=== PATIENT | female | born 1950 | race Caucasian/White ===

== ENCOUNTER → 2016-12-18 | Outpatient (CLI) | payer BC ==
[~2016-12-18] MED LIST: ACET-1256 PO; ASPI81TA28 PO; CLB/200 PO; CLR10 PO; HYDR-3419 PO; IMDSR30 PO; LISI-725 PO; LORA24TA7 PO; PRED-301 PO; SCOP1.5D TD; SERT50TA PO; SIMV10TA2 PO
[2016-12-18 13:51] LABS: ALT/SGPT 21 U/L (12-78); BLOOD UREA NITROGEN 25 mg/dl (7-18); BUN/CREATININE RATIO 33.9 (10-20); CALCIUM 9.9 mg/dl (8.5-10.1); CARBON DIOXIDE 27 mmol/L (21-32); CHLORIDE 106 mmol/L (98-107); CHOLESTEROL 173 mg/dl (0-200); CREATININE 0.75 mg/dl (0.60-1.20); GLUCOSE 95 mg/dl (70-99); SODIUM 140 mmol/L (136-145); TRIGLYCERIDES 211 mg/dl (0-150); VERY LOW DENSITY LIPOPROT CALC 42 mg/dl
[2016-12-18 13:56] LABS: ALB/GLOB RATIO 1.1 (0.9-2); ALKALINE PHOSPHATASE 78 U/L (45-117); AST/SGOT 15 U/L (15-37); CHOLESTEROL/HDL RATIO 2.9; HDL CHOLESTEROL 59 mg/dl; LDL CHOLESTEROL CALCULATED 72 mg/dl
[2016-12-18 14:04] LABS: ESTIMATED AVERAGE GLUCOSE 126 mg/dl; HA1C FLAG Normal (Normal)
== END | disposition home or self-care (01) ==
LOC: C.LABBC 09:25
PROVIDERS: ATTEND Family Medicine
DX: E11.9 Type 2 diabetes mellitus without complications (principal); E78.00 Pure hypercholesterolemia, unspecified

== ENCOUNTER → 2017-01-02 | Outpatient (CLI) | payer BC ==
--- NOTE | 2017-01-02 08:37 | DIAGNOSTIC IMAGING REPORT ---
DOUBLE CONTRAST BARIUM ESOPHAGRAM CLINICAL HISTORY: Dysphagia. COMPARISON STUDY: No priors. TECHNIQUE: A standard air contrast barium esophagram is performed. Multiple spot images of the esophagus are acquired both upright and prone. FINDINGS: The patient swallowed barium and the barium pill without difficulty. The mucosal pattern is normal. There is no evidence of intrinsic or extrinsic mass lesion. No aspiration was seen. The gastroesophageal junction distended normally. Gastroesophageal reflux was observed during the examination. Fluoroscopy time: 1.0 minutes. Fluoroscopic images: 23 IMPRESSION: Gastroesophageal reflux was observed. Electronically signed by: Chepe Mcgarry M.D. 01/02/2017 8:35 AM Dictated Date/Time: 01/02/2017 8:34 AM
== END | disposition home or self-care (01) ==
LOC: C.RAD 07:58
PROVIDERS: ATTEND Family Medicine
DX: R13.10 Dysphagia, unspecified (principal); K21.9 Gastro-esophageal reflux disease without esophagitis

== ENCOUNTER → 2017-04-12 | Outpatient (CLI) | payer BC ==
[2017-04-12 10:54] LABS: HEMATOCRIT 39.6 % (37-47); MEAN CELL VOLUME 95.9 fL (80-100); MEAN CORPUSCULAR HEMOGLOBIN 32.9 pg (25-34); MEAN CORPUSCULAR HGB CONC 34.3 g/dl (32-36); MEAN PLATELET VOLUME 9.8 fL (7.4-10.4); PLATELET COUNT 248 K/uL (130-400); RED BLOOD COUNT 4.13 M/uL (4.2-5.4); WHITE BLOOD COUNT 7.15 K/uL (4.8-10.8)
[2017-04-12 11:08] LABS: ESTIMATED AVERAGE GLUCOSE 120 mg/dl; HA1C FLAG Normal (Normal)
[2017-04-12 11:23] LABS: ALT/SGPT 28 U/L (12-78); AST/SGOT 12 U/L (15-37); BLOOD UREA NITROGEN 25 mg/dl (7-18); BUN/CREATININE RATIO 32.5 (10-20); CALCIUM 10.1 mg/dl (8.5-10.1); CARBON DIOXIDE 27 mmol/L (21-32); CHLORIDE 110 mmol/L (98-107); CHOLESTEROL 160 mg/dl (0-200); CREATININE 0.77 mg/dl (0.60-1.20); GLUCOSE 107 mg/dl (70-99); POTASSIUM 4.2 mmol/L (3.5-5.1); SODIUM 143 mmol/L (136-145)
[2017-04-12 11:26] LABS: ALB/GLOB RATIO 1.2 (0.9-2); ALKALINE PHOSPHATASE 94 U/L (45-117); CHOLESTEROL/HDL RATIO 2.5; HDL CHOLESTEROL 64 mg/dl; LDL CHOLESTEROL CALCULATED 72 mg/dl; TRIGLYCERIDES 118 mg/dl (0-150); VERY LOW DENSITY LIPOPROT CALC 24 mg/dl
--- NOTE | 2017-04-19 11:10 | CODING QUERY MEDICAL NECESSITY ---
CQSUPPORTING DIAGNOSIS NEEDED A supporting diagnosis is required for the test/procedure performed on this patient in order for us to be reimbursed by the patient's insurance. Please provide a supporting diagnosis for the following test/procedure listed below next to the test name along with your signature. *If there is no additional diagnosis for this patient that would support the following test/procedure please document that below next to the test/procedure. Test(s)/Procedure(s) that require a supporting diagnosis: DOS 04/12/17 VITAMIN D TEST Provider Signature: Date: Thank you Shu [facility] Information Management Once completed, please kindly fax back to [phone] For questions please call [phone]
== END | disposition home or self-care (01) ==
LOC: C.LABBC 08:35
PROVIDERS: ATTEND Internal Medicine
DX: Z00.00 Encounter for general adult medical examination without abnormal findings (principal); I10 Essential (primary) hypertension; E11.9 Type 2 diabetes mellitus without complications; E78.00 Pure hypercholesterolemia, unspecified; E55.9 Vitamin D deficiency, unspecified

== ENCOUNTER → 2017-05-14 | Outpatient (CLI) | payer BC ==
--- NOTE | 2017-05-14 15:24 | MAMMOGRAPHY REPORT ---
BILATERAL DIGITAL SCREENING MAMMOGRAM WITH CAD: 05/14/2017 CLINICAL HISTORY: Routine screening. Patient has no complaints. TECHNIQUE: Bilateral CC and MLO views were obtained. Current study was also evaluated with a Compute r Aided Detection (CAD) system. COMPARISON: Comparison is made to exams dated: 05/08/2016 mammogram, 04/06/2015 mammogram, 03/31/2014 ma mmogram, 03/25/2013 mammogram, 03/19/2012 mammogram, and 03/14/2011 mammogram - [facility]. BREAST COMPOSITION: The tissue of both breasts is almost entirely fatty. FINDINGS: There are benign rim calcifications in both breasts. No suspicious mass, architectural dis tortion or cluster of suspicious microcalcifications is seen. IMPRESSION: ACR BI-RADS CATEGORY 1: NEGATIVE There is no mammographic evidence of malignancy. A 1 year screening mammogram is recommended. The pa tient will receive written notification of the results. Approximately 10% of breast cancers are not detected with mammography. A negative mammographic report should not delay biopsy if a clinically suggestive mass is present. Christal Palafox M.D. ay/:05/14/2017 12:18:42 Application Integration Architect: Shae WHITLOCK(R)(M)(BD), [facility] letter sent: Normal 1/2 BI-RADS Code: ACR BI-RADS Category 1: Negative
== END | disposition home or self-care (01) ==
LOC: C.MAMM 11:22
PROVIDERS: ATTEND Obstetrics & Gynecology
DX: Z12.31 Encounter for screening mammogram for malignant neoplasm of breast (principal)

== ENCOUNTER → 2018-01-21 | Outpatient (CLI) | payer BC ==
[2018-01-21 10:59] LABS: HEMATOCRIT 41.6 % (37-47); HEMOGLOBIN 13.9 g/dL (12.0-16.0); MEAN CELL VOLUME 97.4 fL (80-100); MEAN CORPUSCULAR HEMOGLOBIN 32.6 pg (25-34); MEAN CORPUSCULAR HGB CONC 33.4 g/dl (32-36); MEAN PLATELET VOLUME 9.6 fL (7.4-10.4); PLATELET COUNT 245 K/uL (130-400); RED CELL DISTRIBUTION WIDTH CV 13.1 % (11.5-14.5); WHITE BLOOD COUNT 6.88 K/uL (4.8-10.8)
[2018-01-21 11:29] LABS: ALBUMIN 3.6 gm/dl (3.4-5.0); ALT/SGPT 28 U/L (12-78); AST/SGOT 17 U/L (15-37); BLOOD UREA NITROGEN 32 mg/dl (7-18); CALCIUM 9.8 mg/dl (8.5-10.1); CARBON DIOXIDE 28 mmol/L (21-32); CHOLESTEROL 170 mg/dl (0-200); CREATININE 0.84 mg/dl (0.60-1.20); GLUCOSE 110 mg/dl (70-99); POTASSIUM 4.2 mmol/L (3.5-5.1); SODIUM 139 mmol/L (136-145)
[2018-01-21 11:31] LABS: ALKALINE PHOSPHATASE 108 U/L (45-117); LDL CHOLESTEROL CALCULATED 81 mg/dl; TOTAL PROTEIN 6.9 gm/dl (6.4-8.2)
[2018-01-21 11:40] LABS: HEMOGLOBIN A1C 5.6 % (4.5-5.6)
== END | disposition home or self-care (01) ==
LOC: C.LABBC 08:55
PROVIDERS: ATTEND Internal Medicine
DX: Z00.00 Encounter for general adult medical examination without abnormal findings (principal); I10 Essential (primary) hypertension; E11.9 Type 2 diabetes mellitus without complications; E78.00 Pure hypercholesterolemia, unspecified

== ENCOUNTER → 2018-02-06 | Outpatient (CLI) | payer BC | END | disposition home or self-care (01) | LOC: C.LAB1850 12:25 | PROVIDERS: ATTEND Internal Medicine | DX: R82.90 Unspecified abnormal findings in urine (principal); R30.0 Dysuria ==

== ENCOUNTER 2020-08-31 17:46 | Inpatient (IN) ==
--- NOTE | 2020-08-31 18:50 | Emergency Department Note ---
Impression & Plan Pneumonia due to COVID-19 virus, Hypoxia, Elevated d-dimer, Dyspnea on minimal exertion, Hypomagnesemia ED Provider Note NAME: GUMARO CONNOLLY AGE: 70 SEX: F ARRIVES VIA: Walk-In INFORMANT: Patient, ED PROVIDER(S): Juan Basilio MD CHIEF COMPLAINT: Shortness of breath. PLAN: Disposition: Admit MEDICAL DECISION MAKING: The patient is a pleasant 70-year-old woman with a past medical history of CAD, hypertension, hyperlipidemia, severe DONAVON who presents emergency department with worsening shortness of breath over the past week with cough and fever to 101 today with associated symptoms of loss of taste and smell. She reports she does have chronic shortness of breath but today felt significantly more short of breath than usual. She reports intermittent nausea but denies vomiting. She reports diarrhea. She denies urinary symptoms. Denies any known COVID-19 exposures however does admit for Thanksgiving she gathered with family in [place] with her approximately 8 people in attendance hosted by her nephew who works as a fork truck operator for [employer]. However, to her knowledge no one from the gathering has developed any symptoms. On arrival the patient is fatigued, uncomfortable appearing but no acute distress, febrile to 38.4 mildly dyspneic with respiratory rate in the mid 20s and oxygen saturation 92% on room air. She does appear clinically dry. EKG with occasional PVCs without overt acute ischemia. Chest x-ray shows patchy bilateral pulmonary airspace opacities consistent with multifocal pneumonia. COVID-19 RNA, NAAT test was positive. WBC 4.5 with mild lymphopenia to 0.95. H/H and platelets within normal limits. Chemistry with out acidosis. Lactate 1.2, within normal limits. Phosphorus 2.4 and magnesium 1.7 with repletion provided. LFTs unremarkable. Troponin negative/undetectable. BNP within normal limits. Lipase is not elevated. Patient's D-dimer is elevated and so CTA of the chest was ordered. Of note, the patient did experience mildly increased hypoxia to 90%. She was placed on 2 L nasal cannula and ordered for dexamethasone. Given the patient's comorbidities with multifocal pneumonia related to COVID-19 reasonable to meet the patient for further management. CT of the chest per preliminary [facility]RAD report was negative for PE. Previously identified multifocal pneumonia is again seen with bilateral patchy groundglass and consolidative opacities. Case was discussed with Dr. Brown, [facility] hospitalist, who will evaluate the patient for admission. Triage Nursing notes reviewed and agree them. Prior medical records reviewed Vital Signs: reviewed and remarkable for hypoxia Differential diagnosis: Reactive airway disease, pneumonia, pneumothorax, COPD, CHF, infections, cardiac ischemia, pulmonary embolism, musculoskeletal, gastrointestinal, as well as other pathologies. ER treatment provided: See below. Diagnostics interpreted by me: ECG: Sinus rhythm, 88 bpm, with occasional PVCs, no overt ST elevation or depression, QTC 469, QRS 68. Baseline artifact. Cardiac Monitoring: An order for continuous cardiac monitoring was placed and demonstrated sinus rhythm, 80 bpm, occasional PVCs. Laboratory studies: See below Imaging studies: XR chest 1V portable CLINICAL HISTORY: SEPSIS COMPARISON STUDY: 01/21/2015 FINDINGS: The heart is mildly enlarged. There are bilateral patchy pulmonary airspace opacities consistent with a multifocal pneumonia. Correlation with Covid 19 testing is recommended. There are no pleural effusions. There is no pneumothorax.[There is no evidence of failure. IMPRESSION: Patchy bilateral pulmonary airspace opacities consistent with a multifocal pneumonia. Clinical and radiographic follow-up recommended [facility] Preliminary Findings Only See Final Report For Complete Findings CTA CHEST: Patchy bilateral ground-glass and consolidative opacities suspicious for viral pneumonia. No pleural effusion or pneumothorax. No acute pulmonary embolism. No thoracic aortic aneurysm. Normal heart size. Coronary artery atherosclerosis. No pericardial effusion. No acute osseous findings. Radiologist: Tolu Pierson M.D. Study ready at 21:26 and initial results transmitted at 21:38 Consultation(s): Case was discussed with Dr. Brown, [facility] hospitalist, who will evaluate the patient for admission. HPI: The patient is a pleasant 70-year-old woman with a past medical history of CAD, hypertension, hyperlipidemia, severe DONAVON who presents emergency department with worsening shortness of breath over the past week with cough and fever to 101 today with associated symptoms of loss of taste and smell. She reports she does have chronic shortness of breath but today felt significantly more short of breath than usual. She reports intermittent nausea but denies vomiting. She reports diarrhea. She denies urinary symptoms. Denies any known COVID-19 exposures however does admit for Thanksgiving she gathered with family in [place] with her approximately 8 people in attendance hosted by her nephew who works as a fork truck operator for [employer]. However, to her knowledge no one from the gathering has developed any symptoms. ROS: See above HPI for pertinent positives & negatives. A total of 10 systems reviewed and were otherwise negative. PAST MEDICAL HISTORY:See Below PAST SURGICAL HISTORY:See Below FAMILY HISTORY:See Below SOCIAL HISTORY:See Below HOME MEDICATIONS:See Below ALLERGIES:See Below VITALS:See Below PHYSICAL EXAMINATION: GENERAL: Awake, alert, fatigued, mildly dyspneic-appearing, in no distress, BMI, 37.9. HENT: Normocephalic, atraumatic. Oropharynx with dry mucous membranes and otherwise unremarkable. . EYES: Normal conjunctiva. Sclera non-icteric. NECK: Supple. No nuchal rigidity. FROM. No JVD. RESPIRATORY: Diminished at the bases with scattered intermittent wheezes. CARDIAC: Regular rate, normal rhythm. Extremities warm and well perfused. Pulses equal. ABDOMEN: Soft, non-distended. No tenderness to palpation. No rebound or guarding. No masses. RECTAL: Deferred. MUSCULOSKELETAL: Chest examination reveals no tenderness. The back is symmetrical on inspection without obvious abnormality. There is no CVA tenderness to palpation. No joint edema. LOWER EXTREMITIES: Calves are equal size bilaterally and non-tender. No edema. No discoloration. NEURO: Normal sensorium. No sensory or motor deficits noted. SKIN: No rash or jaundice noted. Juan Basilio MD Past Med/Surg History Medical History (Updated 08/31/20 @ 23:06 by Juan Basilio MD) Allergic rhinitis Managed with oral antihistamine + intranasal corticosteroid Coronary artery disease Followed by Cardiology GERD (gastroesophageal reflux disease) Hearing deficit History of colon polyps History of depression Hyperlipidemia Hypertension Osteoarthritis Osteopenia Managed with Vit D supplementation. 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 History of cardiac cath 2016; [facility]; CP; NO STENTS ANGIOPLASTY History of carpal tunnel surgery of left wrist History of section History of cholecystectomy History of colonoscopy History of dilatation and curettage x2 History of left breast biopsy benign History of phacoemulsification of cataract of both eyes with intraocular lens implantation History of tooth extraction Family History Brother Family history of diabetes mellitus Myocardial infarction Sister Family history of diabetes mellitus Lymphoma Cancer Father Family history of diabetes mellitus Father Family hx of colon cancer Colorectal cancer Cancer Myocardial infarction Mother Pancreatic cancer Cancer Other Diabetes No family history of adverse response to anesthesia Denies family history of Ovarian cancer Prostate cancer Breast cancer Social History Smoking Status: Never smoker Second Hand Exposure: No; Hx Alcohol Use: Yes Alcohol type: wine Alcohol type Comment: social Alcohol Intake Frequency: Monthly or Less Hx Substance Use: No Preferred Language: Yakut Communication Ability: Effective Visual Impairment: Limited Hearing Ability: Hard of Hearing [employer] Required: No Beliefs That Will Affect Care: None marital status: Current Living Situation: Spouse current occupational status: retired How many Children do You have: 1 Feels Safe at Home: Yes Childhood Exposure to Second-Hand Smoke: No caffeine: Yes (tea, soda) Dental Care, Regularly: Yes Physical Activity Frequency: Does not Exercise Seatbelt Use: always Sunscreen Use: Yes Assistive Devices: Cane and Glasses Allergies Allergies Allergy/AdvReac Type Severity Reaction Status Date / Time shellfish derived Allergy Unknown Unverified 08/24/20 13:26 No Known Drug Allergies Allergy Verified 08/24/20 13:26 Home Meds Home Medications Medication Instructions Recorded Confirmed acetaminophen 500 mg PO Q6H PRN 10/21/18 08/31/20 aspirin 81 mg PO QAM 10/21/18 08/31/20 cholecalciferol (vitamin D3) 2,000 unit PO QAM 10/21/18 08/31/20 [Vitamin D3] docusate sodium [Colace] 100 mg PO BID 10/21/18 08/31/20 loratadine 10 mg tablet 10 mg PO QAM 04/02/19 08/31/20 Previous Rx's Medication Instructions Recorded lisinopril 10 mg tablet 10 mg PO QAM #90 tab 10/09/19 hydrocodone-homatropine 5 mg-1.5 5 ml PO Q6H PRN #180 ml 11/07/19 mg/5 mL oral syrup verapamil 120 mg 24 hr 120 mg PO DAILY #90 cap 11/07/19 capsule,extended release ranolazine 1,000 mg 1,000 mg PO BID #180 tab 02/04/20 tablet,extended release,12 hr atorvastatin 20 mg tablet 20 mg PO QPM #90 tab 03/09/20 omeprazole 20 mg tablet,delayed 20 mg PO QAM #90 tab 05/25/20 release celecoxib 200 mg capsule 200 mg PO BID #180 cap 05/27/20 isosorbide mononitrate 120 mg 120 mg PO QAM #90 tab 05/27/20 tablet,extended release 24 hr Results & Data (ED) Vital Signs Vital Signs - 24 hr 08/31/20 18:06 08/31/20 19:39 08/31/20 19:41 Temperature 38.3 C H Temperature Source Oral Pulse Rate 76 Pulse Rate [Apical] 75 Pulse Rate from SpO2 Sensor Respiratory Rate 24 18 Respiratory Depth Normal Blood Pressure 127/72 Blood Pressure [Right Arm] 135/69 Blood Pressure Mean 90 Blood Pressure Mean [Right Arm] 91 Pulse Oximetry 92 91 Oxygen Delivery Method Room Air Room Air Room Air Oxygen Flow Rate Sepsis Recent Fever Within 48 Hours No Sepsis New/Unexplained Change in Mental Status N/A Sepsis Action Taken by Nursing No Action Required 08/31/20 20:27 08/31/20 21:00 08/31/20 21:30 Temperature Temperature Source Pulse Rate 76 Pulse Rate [Apical] 72 Pulse Rate from SpO2 Sensor 71 72 Respiratory Rate 25 H 17 20 Respiratory Depth Blood Pressure 118/72 132/74 Blood Pressure [Right Arm] 127/75 Blood Pressure Mean 88 92 Blood Pressure Mean [Right Arm] 92 Pulse Oximetry 90 94 93 Oxygen Delivery Method Room Air Nasal Cannula Nasal Cannula Oxygen Flow Rate 2 2 Sepsis Recent Fever Within 48 Hours Sepsis New/Unexplained Change in Mental Status Sepsis Action Taken by Nursing 08/31/20 22:00 08/31/20 22:30 Temperature Temperature Source Pulse Rate 70 Pulse Rate [Apical] Pulse Rate from SpO2 Sensor 71 70 Respiratory Rate 21 20 Respiratory Depth Blood Pressure 114/71 111/69 Blood Pressure [Right Arm] Blood Pressure Mean 91 82 Blood Pressure Mean [Right Arm] Pulse Oximetry 89 L 90 Oxygen Delivery Method Nasal Cannula Oxygen Flow Rate 3 Sepsis Recent Fever Within 48 Hours Sepsis New/Unexplained Change in Mental Status Sepsis Action Taken by Nursing Laboratory Data Attestation: I reviewed the patient's lab results. Result diagrams: 08/31/20 19:43 08/31/20 19:43 Lab Results 08/31/20 08/31/20 08/31/20 Range/Units 19:43 19:43 19:43 WBC 4.59 L (4.8-10.8) K/uL RBC 4.11 L (4.2-5.4) M/uL Hgb 12.8 (12.0-16.0) g/dL Hct 39.3 (37-47) % MCV 95.6 (80-100) fL MCH 31.1 (25-34) pg MCHC 32.6 (32-36) g/dL RDW Std Deviation 51.1 H (36.4-46.3) fL RDW Coeff of Abhishek 14.5 (11.5-14.5) % Plt Count 176 (130-400) K/uL MPV 10.2 (7.4-10.4) fL Immature Gran % (Auto) 0.2 % Neut % (Auto) 68.9 % Lymph % (Auto) 20.7 % Mesa % (Auto) 10.0 % Eos % (Auto) 0.0 % Baso % (Auto) 0.2 % Neut # (Auto) 3.16 (1.4-6.5) K/uL Lymph # (Auto) 0.95 L (1.2-3.4) K/uL Mesa # (Auto) 0.46 (0.11-0.59) K/uL Eos # (Auto) 0.00 (0-0.5) K/uL Baso # (Auto) 0.01 (0-0.2) K/uL Immature Gran # (Auto) 0.01 (0.00-0.02) K/uL PT 12.4 H (9.0-12.0) Seconds INR 1.2 H (0.9-1.1) APTT 24.3 (21.0-31.0) Seconds PTT Ratio 0.9 D-Dimer 1330 H* (0-500) ug/L FEU VBG pH (7.36-7.41) VBG pCO2 (38-50) mmHg VBG pO2 mmHg VBG HCO3 mmol/L VBG O2 Saturation % VBG Base Excess mEq/L Barometric Pressure mm/Hg Sodium 136 (136-145) mmol/L Potassium 3.8 (3.5-5.1) mmol/L Chloride 104 (98-107) mmol/L Carbon Dioxide 24 (21-32) mmol/L Anion Gap 7.0 (3-11) BUN 17 (7-18) mg/dl Creatinine 1.03 (0.6-1.2) mg/dl Est Cr Clr Drug Dosing 48.7 ml/min Est GFR ( Amer) 62.9 Est GFR (Non-Af Amer) 54.3 BUN/Creatinine Ratio 16.2 (10-20) Glucose 103 H (70-99) mg/dl Lactate (0.4-2.0) mmol/L Calcium 9.7 (8.5-10.1) mg/dl Phosphorus 2.4 L (2.5-4.9) mg/dl Magnesium 1.7 L (1.8-2.4) mg/dl Total Bilirubin 0.6 (0.2-1) mg/dl Direct Bilirubin 0.3 H (0-0.2) mg/dl AST 24 (15-37) U/L ALT 26 (12-78) U/L Alkaline Phosphatase 115 (45-117) U/L Troponin I < 0.015 (0-0.045) ng/ml NT-Pro-B Natriuret Pep 364 (0-900) pg/ml Total Protein 7.4 (6.4-8.2) gm/dl Albumin 3.6 (3.4-5.0) gm/dl Globulin 3.8 (2.5-4.0) gm/dl Albumin/Globulin Ratio 0.9 (0.9-2) Lipase 116 (73-393) U/L COVID-19 Eval Order SARS-CoV-2, RNA, NAAT (NEGATIVE) 08/31/20 08/31/20 08/31/20 Range/Units 19:43 19:43 19:43 WBC (4.8-10.8) K/uL RBC (4.2-5.4) M/uL Hgb (12.0-16.0) g/dL Hct (37-47) % MCV (80-100) fL MCH (25-34) pg MCHC (32-36) g/dL RDW Std Deviation (36.4-46.3) fL RDW Coeff of Abhishek (11.5-14.5) % Plt Count (130-400) K/uL MPV (7.4-10.4) fL Immature Gran % (Auto) % Neut % (Auto) % Lymph % (Auto) % Mesa % (Auto) % Eos % (Auto) % Baso % (Auto) % Neut # (Auto) (1.4-6.5) K/uL Lymph # (Auto) (1.2-3.4) K/uL Mesa # (Auto) (0.11-0.59) K/uL Eos # (Auto) (0-0.5) K/uL Baso # (Auto) (0-0.2) K/uL Immature Gran # (Auto) (0.00-0.02) K/uL PT (9.0-12.0) Seconds INR (0.9-1.1) APTT (21.0-31.0) Seconds PTT Ratio D-Dimer (0-500) ug/L FEU VBG pH (7.36-7.41) VBG pCO2 (38-50) mmHg VBG pO2 mmHg VBG HCO3 mmol/L VBG O2 Saturation % VBG Base Excess mEq/L Barometric Pressure mm/Hg Sodium (136-145) mmol/L Potassium (3.5-5.1) mmol/L Chloride (98-107) mmol/L Carbon Dioxide (21-32) mmol/L Anion Gap (3-11) BUN (7-18) mg/dl Creatinine (0.6-1.2) mg/dl Est Cr Clr Drug Dosing ml/min Est GFR ( Amer) Est GFR (Non-Af Amer) BUN/Creatinine Ratio (10-20) Glucose (70-99) mg/dl Lactate 1.2 (0.4-2.0) mmol/L Calcium (8.5-10.1) mg/dl Phosphorus (2.5-4.9) mg/dl Magnesium (1.8-2.4) mg/dl Total Bilirubin (0.2-1) mg/dl Direct Bilirubin (0-0.2) mg/dl AST (15-37) U/L ALT (12-78) U/L Alkaline Phosphatase (45-117) U/L Troponin I (0-0.045) ng/ml NT-Pro-B Natriuret Pep (0-900) pg/ml Total Protein (6.4-8.2) gm/dl Albumin (3.4-5.0) gm/dl Globulin (2.5-4.0) gm/dl Albumin/Globulin Ratio (0.9-2) Lipase (73-393) U/L COVID-19 Eval [facility] SARS-[facility]-2, RNA, NAAT POSITIVE A* (NEGATIVE) 08/31/20 Range/Units 20:56 WBC (4.8-10.8) K/uL RBC (4.2-5.4) M/uL Hgb (12.0-16.0) g/dL Hct (37-47) % MCV (80-100) fL MCH (25-34) pg MCHC (32-36) g/dL RDW Std Deviation (36.4-46.3) fL RDW Coeff of Abhishek (11.5-14.5) % Plt Count (130-400) K/uL MPV (7.4-10.4) fL Immature Gran % (Auto) % Neut % (Auto) % Lymph % (Auto) % Mesa % (Auto) % Eos % (Auto) % Baso % (Auto) % Neut # (Auto) (1.4-6.5) K/uL Lymph # (Auto) (1.2-3.4) K/uL Mesa # (Auto) (0.11-0.59) K/uL Eos # (Auto) (0-0.5) K/uL Baso # (Auto) (0-0.2) K/uL Immature Gran # (Auto) (0.00-0.02) K/uL PT (9.0-12.0) Seconds INR (0.9-1.1) APTT (21.0-31.0) Seconds PTT Ratio D-Dimer (0-500) ug/L FEU VBG pH 7.43 H (7.36-7.41) VBG pCO2 32 L (38-50) mmHg VBG pO2 37 mmHg VBG HCO3 21 mmol/L VBG O2 Saturation 70.6 % VBG Base Excess -2.6 mEq/L Barometric Pressure 732.6 mm/Hg Sodium (136-145) mmol/L Potassium (3.5-5.1) mmol/L Chloride (98-107) mmol/L Carbon Dioxide (21-32) mmol/L Anion Gap (3-11) BUN (7-18) mg/dl Creatinine (0.6-1.2) mg/dl Est Cr Clr Drug Dosing ml/min Est GFR ( Amer) Est GFR (Non-Af Amer) BUN/Creatinine Ratio (10-20) Glucose (70-99) mg/dl Lactate (0.4-2.0) mmol/L Calcium (8.5-10.1) mg/dl Phosphorus (2.5-4.9) mg/dl Magnesium (1.8-2.4) mg/dl Total Bilirubin (0.2-1) mg/dl Direct Bilirubin (0-0.2) mg/dl AST (15-37) U/L ALT (12-78) U/L Alkaline Phosphatase (45-117) U/L Troponin I (0-0.045) ng/ml NT-Pro-B Natriuret Pep (0-900) pg/ml Total Protein (6.4-8.2) gm/dl Albumin (3.4-5.0) gm/dl Globulin (2.5-4.0) gm/dl Albumin/Globulin Ratio (0.9-2) Lipase (73-393) U/L COVID-19 Eval Order SARS-CoV-2, RNA, NAAT (NEGATIVE) Administered Medications Discontinued Medications Albuterol (Albuterol Hfa 8 Gm Inhaler) 2 puffs INH NOW ONE Stop: 08/31/20 19:11 Last Admin: 08/31/20 19:51 Dose: 2 puffs Documented by: [id number] Dexamethasone (Dexamethasone Sod Inj 10 Mg/Ml Vial) 6 mg IV NOW ONE Stop: 08/31/20 20:42 Last Admin: 08/31/20 20:50 Dose: 6 mg Documented by: [id number] Guaifenesin (Guaifenesin 600 Mg Tabcr) 600 mg PO NOW STA Stop: 08/31/20 19:10 Last Admin: 08/31/20 19:51 Dose: 600 mg Documented by: [id number] Sodium Chloride (Nss) 500 mls @ 999 mls/hr IV .Q31M ONE Stop: 08/31/20 19:39 Last Infusion: 08/31/20 20:42 Dose: 0 mls/hr Documented by: [id number] Admin: 08/31/20 19:51 Dose: 999 mls/hr Documented by: [id number] Acetaminophen (Ofirmev) 1,000 mg in 100 mls @ 400 mls/hr IV NOW STA Stop: 08/31/20 19:23 Last Infusion: 08/31/20 20:07 Dose: 0 mls/hr Documented by: [id number] Admin: 08/31/20 19:51 Dose: 400 mls/hr Documented by: [id number] Magnesium Sulfate/Dextrose (Magnesium Sulfate / D5w) 1 gm in 100 mls @ 200 mls/hr IV Q30M [place] Stop: 08/31/20 21:40 Last Infusion: 08/31/20 22:13 Dose: 0 mls/hr Documented by: [id number] Admin: 08/31/20 21:34 Dose: 200 mls/hr Documented by: [id number] Infusion: 08/31/20 21:34 Dose: 0 mls/hr Documented by: [id number] Admin: 08/31/20 20:51 Dose: 200 mls/hr Documented by: [id number] Ioversol (Optiray 320 125ml) 120 ml IV ONCE ONE Stop: 08/31/20 21:16 Last Admin: 08/31/20 21:15 Dose: 120 ml Documented by: [id number] Discharge Plan Visit Data Chief Complaint: Flu Like Symptoms Stated Complaint: SOB, FEVER, COUGH, CONGESTION, DIARRHEA ED Provider: Juan Basilio Discharge Problem: Pneumonia due to COVID-19 virus, Hypoxia, Elevated d-dimer, Dyspnea on minimal exertion, Hypomagnesemia Forms Stand Alone Forms: My [facility] [address] Prescriptions Prescriptions: No Action atorvastatin 20 mg tablet 20 mg PO QPM Qty: 90 RF: 3 omeprazole 20 mg tablet,delayed release (DR/EC) 20 mg PO QAM Qty: 90 RF: 1 celecoxib 200 mg capsule 200 mg PO BID Qty: 180 RF: 1 isosorbide mononitrate 120 mg tablet extended release 24 hr 120 mg PO QAM Qty: 90 RF: 1 verapamil 120 mg capsule,ext rel. pellets 24 hr 120 mg PO DAILY Qty: 90 RF: 3 hydrocodone-homatropine 5-1.5 mg/5 mL syrup 5 ml PO Q6H PRN (Reason: cough) Qty: 180 RF: 0 ranolazine [Ranexa] 1,000 mg tablet extended release 12 hr 1,000 mg PO BID Qty: 180 RF: 3 lisinopril 10 mg tablet 10 mg PO QAM Qty: 90 RF: 3 aspirin 81 mg Tablet,Delayed Release (Dr/Ec) 81 mg PO QAM RF: 0 acetaminophen 500 mg Tablet 500 mg PO Q6H PRN (Reason: Pain) RF: 0 docusate sodium [Colace] 100 mg Capsule 100 mg PO BID RF: 0 cholecalciferol (vitamin D3) [Vitamin D3] 2,000 unit Capsule 2,000 unit PO QAM RF: 0 loratadine 10 mg tablet 10 mg PO QAM RF: 0
[2020-08-31] MEDS ORDERED: SODIUM CHLORIDE 0.9% 500 ML IV ONE (19:09)
[2020-08-31] MEDS ORDERED: guaiFENesin 600 MG TABCR PO STA (19:09)
[2020-08-31] MEDS ORDERED: ACETAMINOPHEN 1,000 MG/100 ML VIAL IV STA (19:09)
[2020-08-31] MEDS ORDERED: ALBUTEROL HFA 8 GM INHALER INH ONE (19:10)
[2020-08-31 19:57] LABS: Basophils # (auto) 0.01 K/uL (0-0.2); Basophils % (auto) 0.2 %; Hematocrit (blood only) 39.3 % (37-47); Hemoglobin 12.8 g/dL (12.0-16.0); Immature Granulocytes # (auto) 0.01 K/uL (0.00-0.02); Immature Granulocytes % (auto) 0.2 %; Lymphocytes # (auto) 0.95 K/uL (1.2-3.4); Lymphocytes % (auto) 20.7 %; Mean Corpuscular Hemoglobin 31.1 pg (25-34); Mean Corpuscular Hgb Conc 32.6 g/dL (32-36); Mean Corpuscular Volume 95.6 fL (80-100); Mean Platelet Volume 10.2 fL (7.4-10.4); Monocytes # (auto) 0.46 K/uL (0.11-0.59); Neutrophils # (auto) 3.16 K/uL (1.4-6.5); Neutrophils % (auto) 68.9 %; Platelet Count 176 K/uL (130-400); RDW Coefficient of Variation 14.5 % (11.5-14.5); RDW Standard Deviation 51.1 fL (36.4-46.3); Red Blood Count 4.11 M/uL (4.2-5.4); White Blood Count 4.59 K/uL (4.8-10.8)
[2020-08-31 20:07] LABS: INR 1.2 (0.9-1.1); Partial Thromboplastin Ratio 0.9; Partial Thromboplastin Time 24.3 Seconds (21.0-31.0); Prothrombin Time 12.4 Seconds (9.0-12.0)
[2020-08-31 20:17] LABS: Alanine Aminotransferase 26 U/L (12-78); Albumin Level 3.6 gm/dl (3.4-5.0); Aspartate Aminotransferase 24 U/L (15-37); BUN Creatinine Ratio 16.2 (10-20); Bilirubin Direct 0.3 mg/dl (0-0.2); Blood Urea Nitrogen 17 mg/dl (7-18); Calcium 9.7 mg/dl (8.5-10.1); Carbon Dioxide 24 mmol/L (21-32); Chloride 104 mmol/L (98-107); Creatinine Clr Calc Pharmacy 48.7 ml/min; Est GFR (African American) 62.9; Est GFR (Non-African American) 54.3; Glucose 103 mg/dl (70-99); Lipase 116 U/L (73-393); Magnesium 1.7 mg/dl (1.8-2.4); Potassium 3.8 mmol/L (3.5-5.1); Sodium 136 mmol/L (136-145)
[2020-08-31 20:20] LABS: Albumin Globulin Ratio 0.9 (0.9-2); Alkaline Phosphatase 115 U/L (45-117); Bilirubin,Total 0.6 mg/dl (0.2-1); Globulin 3.8 gm/dl (2.5-4.0); NT Pro B Type Natriuretic Pept 364 pg/ml (0-900); Phosphorus 2.4 mg/dl (2.5-4.9); Total Protein 7.4 gm/dl (6.4-8.2); Troponin I < 0.015 ng/ml (0-0.045)
--- NOTE | 2020-08-31 20:25 | XRay Report ---
XR chest 1V portable CLINICAL HISTORY: SEPSIS COMPARISON STUDY: 01/21/2015 FINDINGS: The heart is mildly enlarged. There are bilateral patchy pulmonary airspace opacities consi stent with a multifocal pneumonia. Correlation with Covid 19 testing is recommended. There are no ple ural effusions. There is no pneumothorax.[There is no evidence of failure. IMPRESSION: Patchy bilateral pulmonary airspace opacities consistent with a multifocal pneumonia. Cli nical and radiographic follow-up recommended ACT 112: Negative or not required by law. Electronically signed by: Jerel Mancilla M.D. 08/31/2020 8:24 PM
[2020-08-31 20:34] LABS: D Dimer 1330 ug/L FEU (0-500)
[2020-08-31] MEDS ORDERED: DEXAMETHASONE SOD INJ 10 MG/ML VIAL IV ONE (20:41)
[2020-08-31] MEDS: MAGNESIUM SULFATE / D5W 1 GM/100 ML BAG IV SCH ×2 (20:51→21:34)
[2020-08-31 21:08] LABS: Base Excess VBG -2.6 mEq/L; Oxygen Saturation VBG 70.6 %; pH VBG 7.43 (7.36-7.41)
[2020-08-31] MEDS ORDERED: OPTIRAY 320 125ml IV ONE (21:15)
--- NOTE | 2020-08-31 22:57 | History & Physical Report ---
Date of Service August 31, 2020 Assessment & Plan (1) Pneumonia due to COVID-19 virus: Multifocal pneumonia due to COVID-19 virus with hypoxia- Dexamethasone 6 mg IV every morning. Convalescent plasma, consent obtained Remdesivir IV per protocol Ventolin HFA 2 puffs 4 times daily, and every 2 hours as needed Present on Admission?: Yes (2) Hypoxia: See above Present on Admission?: Yes (3) Elevated d-dimer: CT angiography negative for PE. Placed on Lovenox subcu for DVT prophylaxis Present on Admission?: Yes (4) Coronary artery disease: CAD/hypertension- Continue aspirin, isosorbide mononitrate, lisinopril, ranolazine and verapamil. Present on Admission?: Yes (5) Hypertension: See above Present on Admission?: Yes (6) Hyperlipidemia: Continue atorvastatin 20 mg every evening Present on Admission?: Yes (7) GERD (gastroesophageal reflux disease): Change omeprazole to pantoprazole Present on Admission?: Yes (8) Severe obstructive sleep apnea: CPAP at bedtime as needed Present on Admission?: Yes History of Present Illness Chief Complaint: The patient presents to the emergency department with complaint of worsening cough, shortness of breath, loss of taste and smell over the past week, with fever to 101 F today. Primary Care Provider: Quinten Christy DO The patient is a 70-year-old female with a past medical history including morbid obesity, poor balance, nocturnal hypoxemia, severe DONAVON, CAD, osteopenia, hyperlipidemia, hypertension, GERD and chronic dyspnea. She presents with symptoms as noted above. Work-up in the emergency department included the following abnormal laboratories: INR 1.2, D-dimer 1330, magnesium 1.7, phosphorus 2.4. COVID-19 virus test was positive. Temperature was 100.9 F, and pulse ox was 89% on room air, improving to 92% on 3 L nasal cannula oxygen. Chest x-ray showed patchy bilateral pulmonary airspace opacities consistent with a multifocal pneumonia, with clinical and radiographic follow-up recommended. CT angiography of chest PE protocol showed patchy bilateral groundglass and consolidative opacities suspicious for viral pneumonia. No pleural effusion or pneumothorax. No acute pulmonary embolism. No pericardial effusion. Normal heart size. Coronary artery atherosclerosis. Allergies Allergy/AdvReac Type Severity Reaction Status Date / Time shellfish derived Allergy Unknown Unverified 08/24/20 13:26 No Known Drug Allergies Allergy Verified 08/24/20 13:26 Home Medications Medication Instructions Recorded Confirmed Type acetaminophen 500 mg PO Q6H PRN 10/21/18 08/31/20 History aspirin 81 mg PO QAM 10/21/18 08/31/20 History cholecalciferol (vitamin D3) 2,000 unit PO QAM 10/21/18 08/31/20 History [Vitamin D3] docusate sodium [Colace] 100 mg PO BID 10/21/18 08/31/20 History loratadine 10 mg tablet 10 mg PO QAM 04/02/19 08/31/20 History lisinopril 10 mg tablet 10 mg PO QAM #90 tab 10/09/19 08/31/20 Rx hydrocodone-homatropine 5 mg-1.5 5 ml PO Q6H PRN #180 ml 11/07/19 08/31/20 Rx mg/5 mL oral syrup verapamil 120 mg 24 hr 120 mg PO DAILY #90 cap 11/07/19 08/31/20 Rx capsule,extended release ranolazine 1,000 mg 1,000 mg PO BID #180 tab 02/04/20 08/31/20 Rx tablet,extended release,12 hr atorvastatin 20 mg tablet 20 mg PO QPM #90 tab 03/09/20 08/31/20 Rx omeprazole 20 mg tablet,delayed 20 mg PO QAM #90 tab 05/25/20 08/31/20 Rx release celecoxib 200 mg capsule 200 mg PO BID #180 cap 05/27/20 08/31/20 Rx isosorbide mononitrate 120 mg 120 mg PO QAM #90 tab 05/27/20 08/31/20 Rx tablet,extended release 24 hr Past Med/Surg History Medical History (Updated 08/31/20 @ 23:06 by Juan Basilio MD) Allergic rhinitis Managed with oral antihistamine + intranasal corticosteroid Coronary artery disease Followed by Cardiology GERD (gastroesophageal reflux disease) Hearing deficit History of colon polyps History of depression Hyperlipidemia Hypertension Osteoarthritis Osteopenia Managed with Vit D supplementation. 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 History of cardiac cath 2015; [facility]; CP; NO STENTS ANGIOPLASTY History of carpal tunnel surgery of left wrist History of section History of cholecystectomy History of colonoscopy History of dilatation and curettage x2 History of left breast biopsy benign History of phacoemulsification of cataract of both eyes with intraocular lens implantation History of tooth extraction Family History Brother Family history of diabetes mellitus Myocardial infarction Sister Family history of diabetes mellitus Lymphoma Cancer Father Family history of diabetes mellitus Father Family hx of colon cancer Colorectal cancer Cancer Myocardial infarction Mother Pancreatic cancer Cancer Other Diabetes No family history of adverse response to anesthesia Denies family history of Ovarian cancer Prostate cancer Breast cancer Social History Smoking Status: Never smoker Second Hand Exposure: No; Do You Dip or Chew Tobacco: No; Tobacco Cessation Education Requested by Patient: No Hx Alcohol Use: No Hx Substance Use: No Preferred Language: Azeri Communication Ability: Effective Visual Impairment: Limited Hearing Ability: Hard of Hearing Stallion Manager Required: No Beliefs That Will Affect Care: None marital status: Current Living Situation: Spouse current occupational status: retired How many Children do You have: 1 Other Information That Helps Us Care for You: No Feels Safe at Home: Yes Safety Concerns: Feels Safe At This Time Childhood Exposure to Second-Hand Smoke: No caffeine: Yes (tea, soda) Dental Care, Regularly: Yes Physical Activity Frequency: Does not Exercise Seatbelt Use: always Sunscreen Use: Yes Assistive Devices: Cane and Walker Review of Systems Review of Systems: The patient denies chest pain, palpitations, lower extremity swelling, sore throat, chills, sweats, nausea, vomiting, diarrhea , constipation, abdominal pain, pelvic pain, blood in urine or stool, dysuria, urinary frequency or urgency, lightheadedness, dizziness, headache, memory loss, loss of consciousness, rash, abnormal bruising or bleeding, focal weakness, numbness or tingling in arms or legs, back or neck pain, or night sweats. The review of systems is otherwise negative other than for that already noted above, and at least 10 systems have been reviewed. Physical Exam Physical Exam: The patient is awake, alert and oriented 3, well developed and well nourished, normocephalic and atraumatic, lying in bed and in no acute distress. HEENT--PERRL, EOMI, mucous membranes and oropharynx normal. Neck--supple. No JVD. No bruits. Thyroid normal, trachea midline, no adenopathy. Heart--normal S1 and S2. No murmurs, rubs or gallops. Lungs--coarse breath sounds bilaterally. No respiratory distress, no accessory muscle use. Abdomen--normal bowel sounds and soft. Nontender. Nondistended. Obese. Extremities--no cyanosis or clubbing. No edema. Dermatologic--normal skin turgor, normal color, no abnormal lymph nodes, no rash. Neurologic--cranial nerves II through XII grossly intact. Rheumatologic--normal range of motion. Psychiatric--normal affect. Results & Data Results & Data ([facility]) Vital Signs (Past 12 Hours) Vital Signs Temp Pulse Pulse Resp BP BP Pulse Ox 08/31/20 22:30 70 20 111/69 90 08/31/20 22:00 21 114/71 89 L 08/31/20 21:30 20 132/74 93 08/31/20 21:00 76 17 118/72 94 08/31/20 20:27 72 25 H 127/75 90 08/31/20 19:39 100.9 F H 75 18 135/69 91 08/31/20 18:06 76 24 127/72 92 Laboratory Results Laboratory Results WBC 4.59 K/uL (4.8-10.8) L 08/31/20 19:43 RBC 4.11 M/uL (4.2-5.4) L 08/31/20 19:43 Hgb 12.8 g/dL (12.0-16.0) 08/31/20 19:43 Hct 39.3 % (37-47) 08/31/20 19:43 MCV 95.6 fL (80-100) 08/31/20 19:43 MCH 31.1 pg (25-34) 08/31/20 19:43 MCHC 32.6 g/dL (32-36) 08/31/20 19:43 RDW Std Deviation 51.1 fL (36.4-46.3) H 08/31/20 19:43 RDW Coeff of Abhishek 14.5 % (11.5-14.5) 08/31/20 19:43 Plt Count 176 K/uL (130-400) 08/31/20 19:43 MPV 10.2 fL (7.4-10.4) 08/31/20 19:43 Immature Gran % (Auto) 0.2 % 08/31/20 19:43 Neut % (Auto) 68.9 % 08/31/20 19:43 Lymph % (Auto) 20.7 % 08/31/20 19:43 [place] % (Auto) 10.0 % 08/31/20 19:43 Eos % (Auto) 0.0 % 08/31/20 19:43 Baso % (Auto) 0.2 % 08/31/20 19:43 Neut # (Auto) 3.16 K/uL (1.4-6.5) 08/31/20 19:43 Lymph # (Auto) 0.95 K/uL (1.2-3.4) L 08/31/20 19:43 [place] # (Auto) 0.46 K/uL (0.11-0.59) 08/31/20 19:43 Eos # (Auto) 0.00 K/uL (0-0.5) 08/31/20 19:43 Baso # (Auto) 0.01 K/uL (0-0.2) 08/31/20 19:43 Immature Gran # (Auto) 0.01 K/uL (0.00-0.02) 08/31/20 19:43 PT 12.4 Seconds (9.0-12.0) H 08/31/20 19:43 INR 1.2 (0.9-1.1) H 08/31/20 19:43 APTT 24.3 Seconds (21.0-31.0) 08/31/20 19:43 PTT Ratio 0.9 08/31/20 19:43 D-Dimer 1330 ug/L FEU (0-500) H* 08/31/20 19:43 VBG pH 7.43 (7.36-7.41) H 08/31/20 20:56 VBG pCO2 32 mmHg (38-50) L 08/31/20 20:56 VBG pO2 37 mmHg 08/31/20 20:56 VBG HCO3 21 mmol/L 08/31/20 20:56 VBG O2 Saturation 70.6 % 08/31/20 20:56 VBG Base Excess -2.6 mEq/L 08/31/20 20:56 Barometric Pressure 732.6 mm/Hg 08/31/20 20:56 Sodium 136 mmol/L (136-145) 08/31/20 19:43 Potassium 3.8 mmol/L (3.5-5.1) 08/31/20 19:43 Chloride 104 mmol/L (98-107) 08/31/20 19:43 Carbon Dioxide 24 mmol/L (21-32) 08/31/20 19:43 Anion Gap 7.0 (3-11) 08/31/20 19:43 BUN 17 mg/dl (7-18) 08/31/20 19:43 Creatinine 1.03 mg/dl (0.6-1.2) 08/31/20 19:43 Est Cr Clr Drug Dosing 48.7 ml/min 08/31/20 19:43 Est GFR ( Amer) 62.9 08/31/20 19:43 Est GFR (Non-Af Amer) 54.3 08/31/20 19:43 BUN/Creatinine Ratio 16.2 (10-20) 08/31/20 19:43 Glucose 103 mg/dl (70-99) H 08/31/20 19:43 Lactate 1.2 mmol/L (0.4-2.0) 08/31/20 19:43 Calcium 9.7 mg/dl (8.5-10.1) 08/31/20 19:43 Phosphorus 2.4 mg/dl (2.5-4.9) L 08/31/20 19:43 Magnesium 1.7 mg/dl (1.8-2.4) L 08/31/20 19:43 Total Bilirubin 0.6 mg/dl (0.2-1) 08/31/20 19:43 Direct Bilirubin 0.3 mg/dl (0-0.2) H 08/31/20 19:43 AST 24 U/L (15-37) 08/31/20 19:43 ALT 26 U/L (12-78) 08/31/20 19:43 Alkaline Phosphatase 115 U/L (45-117) 08/31/20 19:43 Troponin I < 0.015 ng/ml (0-0.045) 08/31/20 19:43 NT-Pro-B Natriuret Pep 364 pg/ml (0-900) 08/31/20 19:43 Total Protein 7.4 gm/dl (6.4-8.2) 08/31/20 19:43 Albumin 3.6 gm/dl (3.4-5.0) 08/31/20 19:43 Globulin 3.8 gm/dl (2.5-4.0) 08/31/20 19:43 Albumin/Globulin Ratio 0.9 (0.9-2) 12 19:43 Lipase 116 U/L (73-393) 08/31/20 19:43 COVID-19 Eval Order Covid19 IDNow atMILC 08/31/20 19:43 SARS-CoV-2, RNA, NAAT POSITIVE (NEGATIVE) A* 08/31/20 19:43 Blood Type A Positive 09/01/20 01:59 Antibody Screen NEGATIVE 09/01/20 01:59 Diagnostic Findings [facility], [phone] XRay Report Patient: GUMARO CONNOLLY EAdmit Date: 08/31/20MR#: [id number]: [address] RDAcct ID:[id number]: Date: 1950City Zip: [place], [place] [address]Aon: 70Location: EDSex: FRoom/Bed:Att Phy:Diagnosis: SOB, FEVER, COUGH, CONGESTION, DIARRHEAPri Phy: Quinten Christy, DOService Date: 08/31/20Fam Phy:Interpreting [facility]: [facility]: Ordering Phy: Juan Basilio M.D. cc: ~ XR chest 1V portable CLINICAL HISTORY: SEPSIS COMPARISON STUDY: 01/21/2015 FINDINGS: The heart is mildly enlarged. There are bilateral patchy pulmonary airspace opacities consistent with a multifocal pneumonia. Correlation with Covid 19 testing is recommended. There are no pleural effusions. There is no pneumothorax.[There is no evidence of failure. IMPRESSION: Patchy bilateral pulmonary airspace opacities consistent with a multifocal pneumonia. Clinical and radiographic follow-up recommended ACT 112: Negative or not required by law. Electronically signed by: Jerel Mancilla M.D. 08/31/2020 8:24 PM Dictated: 08/31/202022Transcribed: 08/31/202022 [facility] Patient: GUMARO CONNOLLY (Female) : 46 Status: ER Date: 08/31/20 21:22 Room #: History: sob Slices: 750 Priors: Tech: [place], Matt @ [phone] Exams: CTA CHEST Contrast: IV Amt: 120 Accession Numbers: [id number] Preliminary Findings Only See Final Report For Complete Findings CTA CHEST: Patchy bilateral ground-glass and consolidative opacities suspicious for viral pneumonia. No pleural effusion or pneumothorax. No acute pulmonary embolism. No thoracic aortic aneurysm. Normal heart size. Coronary artery atherosclerosis. No pericardial effusion. No acute osseous findings. Radiologist: Tolu Pierson M.D. Study ready at 21:26 and initial results transmitted at 21:38 *This report constitutes a preliminary interpretation only. Non-acute findings felt to be unrelated to the clinical presentation may not be discussed in this report. The study will be interpreted and a final report will be generated by the local Radiologist the following shift. To reach the hospital radiology department call [phone]. If a discrepancy is found between the preliminary and final interpretations of this study, please notify us via our Client Portal at [email or web address].You can also fax this report with a description of the discrepancy, or include the final report, to our daytime fax number [phone].If faxing, please indicate the severity of discrepancy using one of the following categories: [ ] 1 - Agree/Informational [ ] 2 - Unlikely to Affect Management [ ] 3 - Possible Eventual Change of Management [ ] 4 - Probable Immediate Change of Management For all other patient related information, please fax us at [phone]. [id number] Code Status & VTE Plan Code Status Full code VTE Prophylaxis Plan VTE Prophylaxis will be ordered: Yes PG Care Time/CCT Total # of Minutes Spent Total Time Spent with Patient: Total time spent is greater than 50% in coordination of care (as documented) at patient's floor/unit and/or counseling patient: Coding Level of Care Code 35605 Initial Inpt Care Lvl 3 Diagnoses Pneumonia due to COVID-19 virus U07.1; J12.89 Hypoxia R09.02 Elevated d-dimer R79.89 Coronary artery disease I25.10 Hypertension I10 Hyperlipidemia E78.5 GERD (gastroesophageal reflux disease) K21.9 Severe obstructive sleep apnea G47.33
[2020-09-01] MEDS ORDERED: REMDESIVIR 200 MG in SODIUM CHLORIDE 0.9% 210 ML IV STA (01:54)
[2020-09-01] MEDS ORDERED: ACETAMINOPHEN 325 MG TAB PO PRN ×2 (01:54)
[2020-09-01] MEDS ORDERED: HYDROcodone/HOMATROPINE SYRUP 5MG/1.5MG 5ML UDP PO PRN (01:54)
[2020-09-01] MEDS ORDERED: ONDANSETRON INJ 2 MG/ML 2 ML VIAL IV PRN (01:54)
[2020-09-01] MEDS ORDERED: ENOXAPARIN 0.5 MG/KG SQ SCH (01:54)
[2020-09-01] MEDS: DOCUSATE SODIUM 100 MG CAP PO SCH ×3 (03:06→20:26)
[2020-09-01] MEDS: RANOLAZINE 500 MG ER TAB PO SCH ×3 (03:07→20:26)
[2020-09-01] MEDS: CeleBREX 200 MG CAP PO SCH ×3 (03:08→20:26)
[2020-09-01] MEDS: SODIUM CHLORIDE 0.9% 10ML FLUSH IV SCH (05:46)
[2020-09-01] MEDS: ALBUTEROL HFA 8 GM INHALER INH SCH ×4 (08:03→20:06)
--- NOTE | 2020-09-01 08:18 | CT Scan Report ---
CT angio chest PE protocol CT DOSE: 503.68 mGycm HISTORY: 70 years-old Female with PE. Acute shortness of breath TECHNIQUE: Multiple CTA images of the chest were obtained after the intravenous administration of 120 ml Optiray 320. Coronal and sagittal MIPS were obtained from the axial data set and were submitted for review. All measurements were obtained according to NASCET criteria. A dose lowering technique w as utilized adhering to the principles of ALARA. COMPARISON: Chest radiograph of same day FINDINGS: CTA: Heart is normal in size. There is no pericardial effusion. Moderate coronary artery calcifications. T here is no thoracic aortic aneurysm or dissection. Patency of the imaged great vessels. The pulmonary arterial tree is opacified to level of the distal segmental branches and demonstrates no filling def ects to suggest thromboembolic disease. CT CHEST: Subcentimeter thyroid nodules. Prominent subcarinal lymph nodes measure up to 9 mm, likely reactive. Trace left pleural effusion. No pneumothorax. Patchy subpleural predominant groundglass and alveolar opacities are noted bilaterally. No overt pulmonary edema. The central airways appear patent. No acute process of the imaged upper abdomen. Hepatic steatosis. Implanted battery pack device is not ed within the left paraspinal tissues of the lower thoracic spine with leads projecting inferiorly ou tside the [id number]. Degenerative changes of the shoulders and spine. No acute fracture. IMPRESSION: 1. No evidence of pulmonary thromboembolic disease. 2. Bilateral patchy and subpleural predominant groundglass and alveolar opacities are compatible with a multifocal infectious or inflammatory pneumonitis, likely viral pneumonia. 3. Trace left pleural effusion. ACT 112: Negative or not required by law. The above report was generated using voice recognition software. It may contain grammatical, syntax o r spelling errors. Electronically signed by: Taiwo Welch M.D. 09/01/2020 8:17 AM
[2020-09-01] MEDS: ENOXAPARIN INJ 60 MG/0.6 ML SYR SQ SCH (09:27)
[2020-09-01] MEDS: VERAPAMIL HCL 120 MG TABCR PO SCH (09:28)
[2020-09-01] MEDS: PANTOprazole 40 MG TAB PO SCH (09:28)
[2020-09-01] MEDS: CHOLECALCIFEROL 1,000 UNITS 25 MCG TAB PO SCH (09:28)
[2020-09-01] MEDS: ISOSORBIDE MONO EXTENDED REL 60 MG TABCR PO SCH (09:28)
[2020-09-01] MEDS: lisinopril 10 MG TAB PO SCH (09:28)
[2020-09-01] MEDS: ASPIRIN 81 MG ECTAB PO SCH (09:28)
[2020-09-01] MEDS: dexAMETHasone 6 MG in SYRINGE 0 ML IV SCH (09:29)
[2020-09-01 10:37] LABS: Calcium 9.3 mg/dl (8.5-10.1); Creatinine Clr Calc Pharmacy 54.7 ml/min; Est GFR (African American) 59.4; Est GFR (Non-African American) 51.2; Magnesium 2.5 mg/dl (1.8-2.4); Potassium 3.9 mmol/L (3.5-5.1)
[2020-09-01 10:59] LABS: Phosphorus 3.5 mg/dl (2.5-4.9)
[2020-09-01] MEDS: LORATADINE 10 MG TAB PO SCH (11:05)
--- NOTE | 2020-09-01 13:46 | Electrocardiogram Report ---
Test Reason : Blood Pressure : / mmHG Vent. Rate : 088 BPM Atrial Rate : 076 BPM P-R Int : 000 ms QRS Dur : 068 ms QT Int : 388 ms P-R-T Axes : 000 000 058 degrees QTc Int : 469 ms Poor data quality, interpretation may be adversely affected Probable Sinus rhythm Low voltage QRS Abnormal ECG When compared with ECG of 28-JAN-2002 12:08, Nonspecific T wave abnormality now evident in Anterior leads Confirmed by Aniceto Ayers ([id number]) on 09/01/2020 1:45:52 PM Referred By: REFERRED SELF Confirmed By:Aniceto Ayers
--- NOTE | 2020-09-01 14:37 | Hospitalist Progress Note ---
Date of Service September 01, 2020 Assessment & Plan (1) Pneumonia due to COVID-19 virus: Symptoms started 08/24/2020 with cold-like symptoms. She then developed a slight cough that was nonproductive. She then got a flu shot and attributed body aches to that Over the last 2 or 3 days she began to have more fatigue and shortness of breath She presented for admission 08/31/2020 and had a positive Covid test on admission. She was started on remdesivir with first dose 09/01/2020 * This has been discontinued as her symptoms began 08/24/2020 Consent was obtained for convalescent plasma * Order for administration was discontinued again secondary to symptoms over a week ago Patient was started on dexamethasone with her first dose 08/31/2020 * We will continue this per CDC guidelines for 10 days. On discharge will convert from IV to oral Patient currently is requiring 2 L/min via nasal cannula to keep SaO2 greater than 90%. Patient is not on any home O2 Continue to monitor patient and provide supportive care (2) Elevated d-dimer: D-dimer was 1330. This is consistent with inflammatory process of Covid 19 CT of the chest was completed and is negative for pulmonary embolus (3) Severe obstructive sleep apnea: Patient previously followed with Dr. Pena and was diagnosed with obstructive sleep apnea with nocturnal hypoxia The patient is on CPAP at home with 7 cm of water and no supplemental oxygen At this time we will hold on CPAP secondary to viral shedding Continue to monitor on telemetry and follow SaO2 (4) Nocturnal hypoxemia: Demonstrated during polysomnography Patient is not on any supplemental oxygen at home Patient is on CPAP at home with no supplemental oxygen bleed (5) Coronary artery disease: Patient reports small vessel occlusion Follows with cardiology with Dr. Ayers and Pola Rossi Continue aspirin, atorvastatin, Imdur, lisinopril, and verapamil Continue to monitor on telemetry No chest pain or tightness No EKG changes (6) Hyperlipidemia: Continue atorvastatin (7) Hypertension: Continue antihypertensives as listed above with CAD (8) GERD (gastroesophageal reflux disease): Omeprazole at home Continue pantoprazole while inpatient and then discharged on home dose of omeprazole (9) DVT prophylaxis: Patient is on enoxaparin 50 mg daily * This dose is consistent with Covid guidelines recommending 1/2 mg/kg * Calculated dose will be 45 mg daily. Per med and the policy, dose rounded up to 50 mg daily Admission and Anticipated Discharge Date Admission Date: August 31, 2020 Subjective Attending: Dr. Zack Monsalve This is a 70-year-old female that was admitted 08/31/2020. She began having cold-like symptoms last 08/24/2020. She had a slight cough with no production. She then had a flu shot last week and began to have body aches. Her shortness of breath improved for a day or 2 but then worsened. She presented for evaluation and Covid testing was positive on 08/31/2020. She was started on remdesivir 09/01/2020 and starting dexamethasone 08/31/2020. There is consent obtained for convalescent plasma. She is not on home O2 but is on CPAP at 7 cm of water for a diagnosis of obstructive sleep apnea with nocturnal hypoxia. She previously followed with Dr. Pena. She currently states she is not following with anyone. She has never been a smoker. She feels better today but continues to remain hypoxic even with supplemental oxygen. At rest she is doing well but desaturates into the mid 80s with minimal movement. She was last febrile 08/31/2020 with a T-max of 38.3 C. She currently has an SaO2 at rest of 92% on 2 L/min via nasal cannula. She has no chest pain or tightness. She has no other acute complaints. Review of Systems Review of Systems: All systems reviewed & are unremarkable except as noted in Subjective Physical Exam Physical Exam: GENERAL : No acute distress. Conversational dyspnea as well as hypoxia with minimal activity EYES: No icterus, gaze conjugate NOSE: No evidence of epistaxis MOUTH: No lesions or candidiasis NECK: Supple LUNGS: Fine bibasilar crackles. She has no bronchospasm and no rhonchi. HEART: Regular, rate controlled. Normal sinus rhythm on telemetry. ABDOMEN: Soft, NT, ND, BS Present EXTREMITIES: No LE edema, pedal pulses intact NEURO: A&OX3 Results & Data Results & Data ([facility]) Vital Signs (Past 12 Hours) Vital Signs Temp Pulse Resp BP Pulse Ox Pulse Ox 09/01/20 12:04 36.8 C 69 20 93/54 L 92 09/01/20 11:46 68 20 94 09/01/20 08:04 73 20 93 09/01/20 08:00 94 09/01/20 07:48 36.6 C 63 21 116/74 95 09/01/20 05:41 36.5 C 65 20 112/80 94 Laboratory Results 08/31/20 19:43 09/01/20 09:59 08/31/20 19:43 Troponin I < 0.[address] angio chest PE protocol CT DOSE: 503.68 mGycm HISTORY: 70 years-old Female with PE. Acute shortness of breath TECHNIQUE: Multiple CTA images of the chest were obtained after the intravenous administration of 120 ml Optiray 320. Coronal and sagittal MIPS were obtained from the axial data set and were submitted for review. All measurements were obtained according to NASCET criteria. A dose lowering technique was utilized adhering to the principles of ALARA. COMPARISON: Chest radiograph of same day FINDINGS: CTA: Heart is normal in size. There is no pericardial effusion. Moderate coronary artery calcifications. There is no thoracic aortic aneurysm or dissection. Patency of the imaged great vessels. The pulmonary arterial tree is opacified to level of the distal segmental branches and demonstrates no filling defects to suggest thromboembolic disease. CT CHEST: Subcentimeter thyroid nodules. Prominent subcarinal lymph nodes measure up to 9 mm, likely reactive. Trace left pleural effusion. No pneumothorax. Patchy subpleural predominant groundglass and alveolar opacities are noted bilaterally. No overt pulmonary edema. The central airways appear patent. No acute process of the imaged upper abdomen. Hepatic steatosis. Implanted battery pack device is noted within the left paraspinal tissues of the lower thoracic spine with leads projecting inferiorly outside the [id number]. Degenerative changes of the shoulders and spine. No acute fracture. IMPRESSION: 1. No evidence of pulmonary thromboembolic disease. 2. Bilateral patchy and subpleural predominant groundglass and alveolar opacities are compatible with a multifocal infectious or inflammatory pneumonitis, likely viral pneumonia. 3. Trace left pleural effusion. ACT 112: Negative or not required by law. The above report was generated using voice recognition software. It may contain grammatical, syntax or spelling errors. Electronically signed by: Taiwo Welch M.D. 09/01/2020 8:17 AM PG Care Time/CCT Total # of Minutes Spent Total Time Spent with Patient: Total time spent is greater than 50% in coordination of care (as documented) at patient's floor/unit and/or counseling patient: 40 minutes Coding Level of Care Code 85055 Subseq Hosp Care Lvl 2 Diagnoses Pneumonia due to COVID-19 virus U07.1; J12.89 Elevated d-dimer R79.89 Severe obstructive sleep apnea G47.33 Nocturnal hypoxemia G47.34 Coronary artery disease I25.10 Hyperlipidemia E78.5 Hypertension I10 GERD (gastroesophageal reflux disease) K21.9 DVT prophylaxis Z29.9
[2020-09-01] MEDS ORDERED: REMDESIVIR 100 MG in SODIUM CHLORIDE 0.9% 230 ML IV SCH (20:00)
[2020-09-01] MEDS: ATORVASTATIN 20 MG TAB PO SCH (20:26)
[2020-09-02] MEDS: SODIUM CHLORIDE 0.9% 10ML FLUSH IV SCH (01:52)
[2020-09-02 06:06] LABS: Appearance Urine Clear (Clear); Bacteria Urine Automated 4+ (Negative); Bilirubin Urine Negative (Negative); Blood Urine Negative (Negative); Color Urine Dark Yellow; Epithelial Cell Urine Auto >30 /lpf (0-5); Glucose Urine UA Negative (Negative); Ketones Urine Trace (Negative); Leukocyte Esterase Urine Trace (Negative); Nitrite Urine Positive (Negative); Protein Urine Trace (Negative); RBC Urine Automated 0-4 /hpf (0-4); Specific Gravity Urine 1.031 (1.000-1.030); Urobilinogen Urine Negative (Negative); pH Urine 5.5 (4.5-7.5)
--- NOTE | 2020-09-02 08:00 | XRay Report ---
XR chest 1V portable CLINICAL HISTORY: Hypoxia secondary to Covid COMPARISON STUDY: 08/31/2020 FINDINGS: The heart is enlarged. There is equivocal slight improvement in the bilateral pulmonary air space opacities. There is no failure. There are no pleural effusions.[ IMPRESSION: Equivocal slight improvement in the patient's bilateral pulmonary airspace opacities ACT 112: Negative or not required by law. Electronically signed by: Jerel Mancilla M.D. 09/02/2020 7:59 AM
[2020-09-02] MEDS: ALBUTEROL HFA 8 GM INHALER INH SCH ×4 (08:05→20:59)
[2020-09-02] MEDS: DOCUSATE SODIUM 100 MG CAP PO SCH ×2 (09:09→19:46)
[2020-09-02] MEDS: VERAPAMIL HCL 120 MG TABCR PO SCH (09:13)
[2020-09-02] MEDS: CeleBREX 200 MG CAP PO SCH ×2 (09:13→19:46)
[2020-09-02] MEDS: ENOXAPARIN INJ 60 MG/0.6 ML SYR SQ SCH (09:14)
[2020-09-02] MEDS: ISOSORBIDE MONO EXTENDED REL 60 MG TABCR PO SCH (09:14)
[2020-09-02] MEDS: ASPIRIN 81 MG ECTAB PO SCH (09:14)
[2020-09-02] MEDS: dexAMETHasone 6 MG in SYRINGE 0 ML IV SCH (09:14)
[2020-09-02] MEDS: RANOLAZINE 500 MG ER TAB PO SCH ×2 (09:15→19:46)
[2020-09-02] MEDS: CHOLECALCIFEROL 1,000 UNITS 25 MCG TAB PO SCH (09:15)
[2020-09-02] MEDS: PANTOprazole 40 MG TAB PO SCH (09:15)
[2020-09-02] MEDS: lisinopril 10 MG TAB PO SCH (09:16)
--- NOTE | 2020-09-02 11:31 | Hospitalist Progress Note ---
Date of Service September 02, 2020 Assessment & Plan (1) Pneumonia due to COVID-19 virus: Symptoms started 08/24/2020 with cold-like symptoms. She then developed a slight cough that was nonproductive. She then got a flu shot and attributed body aches to that 2 or 3 days prior to admission she began to have more fatigue and shortness of breath She presented for admission 08/31/2020 and had a positive Covid test at that time. She was started on remdesivir with first dose 09/01/2020 * This has been discontinued as her symptoms began 08/24/2020 Consent was obtained for convalescent plasma * Order for administration was discontinued again secondary to symptoms over a week ago Patient was started on dexamethasone with her first dose 08/31/2020 * We will continue this per CDC guidelines for 10 days. On discharge will co nvert from IV to oral unless patient is able to be weaned completely off supplemental O2 and then this can be discontinued Patient currently is requiring 2 L/min via nasal cannula to keep SaO2 greater than 90%. Patient is not on any home O2 Continue to monitor patient and provide supportive care (2) Elevated d-dimer: D-dimer was 1330. This is consistent with inflammatory process of Covid 19 CT of the chest was completed and is negative for pulmonary embolus (3) Severe obstructive sleep apnea: Patient previously followed with Dr. Pena and was diagnosed with obstructive sleep apnea with nocturnal hypoxia The patient is on CPAP at home with 7 cm of water and no supplemental oxygen At this time we will hold on CPAP secondary to viral shedding Continue to monitor on telemetry and follow SaO2 (4) Nocturnal hypoxemia: Demonstrated during polysomnography Patient is not on any supplemental oxygen at home Patient is on CPAP at home with no supplemental oxygen bleed (5) Coronary artery disease: Patient reports small vessel occlusion Follows with cardiology with Dr. Ayers and Pola Rossi Continue aspirin, atorvastatin, Imdur, lisinopril, and verapamil Continue to monitor on telemetry No chest pain or tightness No EKG changes (6) Hyperlipidemia: Continue atorvastatin (7) Hypertension: Continue antihypertensives as listed above with CAD (8) GERD (gastroesophageal reflux disease): Omeprazole at home Continue pantoprazole while inpatient and then discharged on home dose of o meprazole (9) DVT prophylaxis: Patient is on enoxaparin 50 mg daily * This dose is consistent with Covid guidelines recommending 0.5 mg/kg * Calculated dose will be 45 mg daily. Per med and the policy, dose rounded up to 50 mg daily Admission and Anticipated Discharge Date Admission Date: August 31, 2020 Subjective Attending: Dr. Zack Monsalve Mrs. Sage is doing better today. She is now weaned down to 2 L/min via nasal cannula. She reports continued shortness of breath with minimal exertion. She has not been out of bed to the chair. But states that she is sitting up more in bed today. She has no specific cough or sputum production. She denies any hemoptysis. She denies fever as well. She is very fatigued and has difficulty ambulating to the bathroom and back. She has no new acute complaints. Review of Systems Review of Systems: All systems reviewed & are unremarkable except as noted in Subjective Physical Exam Physical Exam: GENERAL : No acute distress EYES: No icterus, gaze conjugate NOSE: No evidence of epistaxis MOUTH: No lesions or candidiasis NECK: Supple LUNGS: Bibasilar crackles. Patient has no bronchospasm. Deep inspiration induces cough. HEART: Regular, rate controlled ABDOMEN: Soft, NT, ND, BS Present EXTREMITIES: No LE edema, pedal pulses intact NEURO: A&OX3 Results & Data Results & Data ([facility]) Vital Signs (Past 12 Hours) Vital Signs Temp Pulse Pulse Resp BP Pulse Ox 09/02/20 11:21 74 18 92 09/02/20 10:07 91 09/02/20 09:34 94 09/02/20 08:31 36.6 C 72 18 130/76 93 09/02/20 08:08 72 18 93 09/02/20 08:00 66 09/02/20 04:00 36.6 C 70 18 130/73 93 09/02/20 00:38 37 C 71 18 120/74 94 09/02/20 00:14 73 Laboratory Results 08/31/20 19:43 09/01/20 09:59 08/31/20 19:43 Troponin I < 0.015 08/31/20 20:56 VBG pH 7.43 H VBG pCO2 32 L VBG pO2 37 VBG HCO3 21 VBG O2 Saturation 70.6 VBG Base Excess -2.6 Diagnostic Findings XR chest 1V portable CLINICAL HISTORY: Hypoxia secondary to Covid COMPARISON STUDY: 08/31/2020 FINDINGS: The heart is enlarged. There is equivocal slight improvement in the bilateral pulmonary airspace opacities. There is no failure. There are no pleural effusions.[ IMPRESSION: Equivocal slight improvement in the patient's bilateral pulmonary airspace opacities ACT 112: Negative or not required by law. Electronically signed by: Jerel Mancilla M.D. 09/02/2020 7:59 AM PG Care Time/CCT Total # of Minutes Spent Total Time Spent with Patient: Total time spent is greater than 50% in coordination of care (as documented) at patient's floor/unit and/or counseling patient: 20 minutes Coding Level of Care Code 77412 Subseq Hosp Care Lvl 2 Diagnoses Pneumonia due to COVID-19 virus U07.1; J12.89 Elevated d-dimer R79.89 Severe obstructive sleep apnea G47.33 Nocturnal hypoxemia G47.34 Coronary artery disease I25.10 Hyperlipidemia E78.5 Hypertension I10 GERD (gastroesophageal reflux disease) K21.9 DVT prophylaxis Z29.9 Time Spent (min) 20
[2020-09-02] MEDS: LORATADINE 10 MG TAB PO SCH (12:26)
[2020-09-02] MEDS: ATORVASTATIN 20 MG TAB PO SCH (19:46)
[2020-09-03] MEDS: ALBUTEROL HFA 8 GM INHALER INH SCH (07:52)
[2020-09-03] MEDS: DOCUSATE SODIUM 100 MG CAP PO SCH (08:08)
[2020-09-03] MEDS: ISOSORBIDE MONO EXTENDED REL 60 MG TABCR PO SCH (08:09)
[2020-09-03] MEDS: ASPIRIN 81 MG ECTAB PO SCH (08:09)
[2020-09-03] MEDS: PANTOprazole 40 MG TAB PO SCH (08:09)
[2020-09-03] MEDS: dexAMETHasone 6 MG in SYRINGE 0 ML IV SCH (08:09)
[2020-09-03] MEDS: ENOXAPARIN INJ 60 MG/0.6 ML SYR SQ SCH (08:09)
[2020-09-03] MEDS: RANOLAZINE 500 MG ER TAB PO SCH (08:10)
[2020-09-03] MEDS: lisinopril 10 MG TAB PO SCH (08:10)
[2020-09-03] MEDS: VERAPAMIL HCL 120 MG TABCR PO SCH (08:10)
[2020-09-03] MEDS: CHOLECALCIFEROL 1,000 UNITS 25 MCG TAB PO SCH (08:10)
[2020-09-03] MEDS: CeleBREX 200 MG CAP PO SCH (08:11)
[2020-09-03] MEDS: LORATADINE 10 MG TAB PO SCH (08:11)
[2020-09-03] MEDS ORDERED: ALBUTEROL HFA 8 GM INHALER INH PRN (08:45)
--- NOTE | 2020-09-03 16:25 | Discharge Summary ---
Date of Service September 03, 2020 Admission HPI Per Admitting Provider The patient is a 70-year-old female with a past medical history including morbid obesity, poor balance, nocturnal hypoxemia, severe DONAVON, CAD, osteopenia, hyperlipidemia, hypertension, GERD and chronic dyspnea. She presents with symptoms as noted above. Work-up in the emergency department included the following abnormal laboratories: INR 1.2, D-dimer 1330, magnesium 1.7, phosphorus 2.4. COVID-19 virus test was positive. Temperature was 100.9 F, and pulse ox was 89% on room air, improving to 92% on 3 L nasal cannula oxygen. Chest x-ray showed patchy bilateral pulmonary airspace opacities consistent with a multifocal pneumonia, with clinical and radiographic follow-up recommended. CT angiography of chest PE protocol showed patchy bilateral groundglass and consolidative opacities suspicious for viral pneumonia. No pleural effusion or pneumothorax. No acute pulmonary embolism. No pericardial effusion. Normal heart size. Coronary artery atherosclerosis. Admission Exam Per Admitting Provider The patient is awake, alert and oriented 3, well developed and well nourished, normocephalic and atraumatic, lying in bed and in no acute distress. HEENT--PERRL, EOMI, mucous membranes and oropharynx normal. Neck--supple. No JVD. No bruits. Thyroid normal, trachea midline, no adenopathy. Heart--normal S1 and S2. No murmurs, rubs or gallops. Lungs--coarse breath sounds bilaterally. No respiratory distress, no accessory muscle use. Abdomen--normal bowel sounds and soft. Nontender. Nondistended. Obese. Extremities--no cyanosis or clubbing. No edema. Dermatologic--normal skin turgor, normal color, no abnormal lymph nodes, no rash. Neurologic--cranial nerves II through XII grossly intact. Rheumatologic--normal range of motion. Psychiatric--normal affect. Principal Diagnosis COVID-19 pneumonia Discharge Exam GENERAL : No acute distress EYES: No icterus, gaze conjugate NOSE: No evidence of epistaxis MOUTH: No lesions or candidiasis NECK: Supple LUNGS: CTA B/L, no wheezes, rales or rhonchi HEART: Regular, rate controlled ABDOMEN: Soft, NT, ND, BS Present EXTREMITIES: No LE edema, pedal pulses intact NEURO: A&OX3 Discharge Data Allergies Allergy/AdvReac Type Severity Reaction Status Date / Time shellfish derived Allergy Unknown Unverified 08/24/20 13:26 No Known Drug Allergies Allergy Verified 08/24/20 13:26 Consultations 08/31/20 21:47 ED Decision to Admit Stat 09/01/20 01:54 Consult Case Management - Discharge Planning Routine Ordered Studies 08/31/20 20:43 CT angio chest PE protocol Urgent Hospital Course (1) Pneumonia due to COVID-19 virus: Symptoms started 08/24/2020 with cold-like symptoms. She then developed a slight cough that was nonproductive. She then got a flu shot and attributed body aches to that 2 or 3 days prior to admission she began to have more fatigue and shortness of breath She presented for admission 08/31/2020 and had a positive Covid test at that time. She was started on remdesivir with first dose 09/01/2020 * This has been discontinued as her symptoms began 08/24/2020 Consent was obtained for convalescent plasma * Order for administration was discontinued again secondary to symptoms over a week ago Patient was started on dexamethasone with her first dose 08/31/2020 * We will continue this per CDC guidelines for 10 days. She will be prescribed an additional 6 tablets of dexamethasone 6 mg p.o. 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 This is consistent with inflammatory process of Covid 19 CT of the chest was completed and is negative for pulmonary embolus Anticoagulated while inpatient with enoxaparin (3) Severe obstructive sleep apnea: Patient previously followed with Dr. Pena and was diagnosed with obstructive sleep apnea with nocturnal hypoxia The patient is on CPAP at home with 7 cm of water and no supplemental oxygen At this time we will hold on CPAP secondary to viral shedding Continue CPAP on discharge Patient now requiring supplemental oxygen with exertion Follow-up with Dr. Pena on discharge or with another cage shift manager (4) Nocturnal hypoxemia: Demonstrated during polysomnography Patient is not on any supplemental oxygen at home Patient is on CPAP at home with no supplemental oxygen bleed (5) Coronary artery disease: Patient reports small vessel occlusion Follows with cardiology with Dr. Ayers and Pola Rossi Continue aspirin, atorvastatin, Imdur, lisinopril, and verapamil Continue to monitor on telemetry No chest pain or tightness No EKG changes (6) Hyperlipidemia: Continue atorvastatin (7) Hypertension: Continue antihypertensives as listed above with CAD (8) GERD (gastroesophageal reflux disease): Omeprazole at home on discharge Total Time Total Time Spent Total Time Spent (In Minutes): 45 Discharge Plan Discharge Items Patient Disposition: Home - Self-Care Reason For Visit: COVID-19 PNEUMONIA WITH HYPOXIA Discharge Diagnosis: COVID-19 viral pneumonia with hypoxia Activity: Resume your previous activity Lifting: Gradually increase as tolerated Bathing: No limitations Sexual Activity: When tolerated Exercise/Sports: Gradually increase as tolerated Weightbearing: Full weightbearing Non-emergency contact: Primary Care Provider Call non-emergency contact if: you have any medication questions, your symptoms worsen and you have a fever Follow-up/Referrals: Quinten Christy DO [Primary Care Provider] - 09/08/20 11:30 am (TELEHEALTH VISIT THRU PORTAL) Diet: Heart Healthy Addtl Attending Provider Instructions: You were admitted with shortness of breath and found to have a positive test for COVID-19 on 08/31/2020. You were started on remdesivir with your first dose on 09/01/2020. We will discontinue this on discharge. You were also started on steroids with dexamethasone. Since you are going home on oxygen, this will be continued for total of 10 days of treatment. He did require additional oxygen with activity and will be sent home with oxygen to be administered by nasal cannula at 2 L/min. You were most likely still shedding virus and should sleep in a separate room from your . At home you can continue your CPAP at your home settings of 7 cm of water at the current settings of your machine. Yo u should keep the bedroom door closed at all times even when you are not in the room. You should also isolate at home from your whenever possible and should not leave the house to shop, do grocery shopping, or run errands until at least 09/08/2020 providing you do not have fever and your symptoms have improved. After that point you should wear a procedure mask and practice good social distancing. You will be sent home on your usual home medications. If you have fever, increased shortness of breath, increased cough, call your primary care physician for evaluation. Pending Studies at Discharge: No Stand-Alone Forms: My [facility] Medications and DC Order Prescriptions: New dexamethasone 6 mg tablet 6 mg PO DAILY Qty: 6 RF: 0 Continued atorvastatin 20 mg tablet 20 mg PO QPM Qty: 90 RF: 3 omeprazole 20 mg tablet,delayed release (DR/EC) 20 mg PO QAM Qty: 90 RF: 1 celecoxib 200 mg capsule 200 mg PO BID Qty: 180 RF: 1 isosorbide mononitrate 120 mg tablet extended release 24 hr 120 mg PO QAM Qty: 90 RF: 1 verapamil 120 mg capsule,ext rel. pellets 24 hr 120 mg PO DAILY Qty: 90 RF: 3 hydrocodone-homatropine 5-1.5 mg/5 mL syrup 5 ml PO Q6H PRN (Reason: cough) Qty: 180 RF: 0 ranolazine [Ranexa] 1,000 mg tablet extended release 12 hr 1,000 mg PO BID Qty: 180 RF: 3 lisinopril 10 mg tablet 10 mg PO QAM Qty: 90 RF: 3 aspirin 81 mg Tablet,Delayed Release (Dr/Ec) 81 mg PO QAM RF: 0 acetaminophen 500 mg Tablet 500 mg PO Q6H PRN (Reason: Pain) RF: 0 docusate sodium [Colace] 100 mg Capsule 100 mg PO BID RF: 0 cholecalciferol (vitamin D3) [Vitamin D3] 2,000 unit Capsule 2,000 unit PO QAM RF: 0 loratadine 10 mg tablet 10 mg PO QAM RF: 0 Discharge Orders: Discharge Order (Routine); Ordered 09/03/20 Ordered By: Chepe Richardson/Other Patient Handouts: 2019-nCoV, COVID-19 Prevention, Caring for Someone Who Has COVID-19, Disinfecting Your Home of COVID-19 Admission Data Admit Date/Time: 08/31/20 22:56 Attending Provider: Zack Monsalve Admit Provider: Rahul Brown Primary Care Provider: Quinten Christy Other Providers: Rahul Brown Other Interventions: Discharge Summary Assessment (RN) Last Done: 09/03/20 14:39 Supervising Physician Co-Signing Physician Notes Patient seen and examined on the day of discharge. I agree with the discharge summary by Chepe HALL. I have reviewed the chart including labs, imaging and plans for discharge. patient doing a lot better, breathing well on room air at rest, needs 2L on exertion, arranging for home oxygen eating well, drinking well, no fever - COVID 19 pneumonia: improved with standard treatment, dexamethasone discharge home on dexamethasone to complete 10 days total arrange for home oxygen on exertion stay well rested, well nourished, well hydrated Coding Level of Care Code D/C Day Management >30 mins Diagnoses Pneumonia due to COVID-19 virus U07.1; J12.89 Elevated d-dimer R79.89 Severe obstructive sleep apnea G47.33 Nocturnal hypoxemia G47.34 Coronary artery disease I25.10 Hyperlipidemia E78.5 Hypertension I10 GERD (gastroesophageal reflux disease) K21.9
== END 2020-09-03 16:00 | disposition home or self-care (01) | DRG 177 ==
LOC: ED 17:46 → EDINP 22:56 → SUATTDRO 22:56 → 2N 09-01 19:01